=== PATIENT | female | born 1945 | race Caucasian/White ===

== ENCOUNTER 2019-08-15 05:38 | Inpatient (IN) ==
--- NOTE | 2019-08-15 06:57 | Diag Imaging Result Doc PS360 ---
CHEST-2 VIEWS - 08/15/2019 INDICATION: cp COMPARISON: 05/08/2019 FINDINGS: There is COPD. The lungs are clear. Heart size is normal. No pneumothorax or pleural effusion. IMPRESSION: No acute disease. Electronically signed by Duke Holcomb 08/15/2019 6:54 AM
--- NOTE | 2019-08-15 07:09 | PROVIDER DOCUMENTATION ---
HPI-Chest Pain - General Chief Complaint: Chest Pain Stated Complaint: CP Time Seen by Provider: 08/15/19 07:02 Source: patient Allergies/Adverse Reactions: Patient Allergies Allergy/AdvReac Type Severity Reaction Status Date / Time hydrocodone polistirex * Allergy NAUSEA/VOMI Verified 08/15/19 06:18 [From Tussionex] TING levofloxacin [From Levaquin] Allergy NAUSEA/VOMI Verified 08/15/19 06:18 TING Penicillins Allergy NAUSEA/VOMI Verified 08/15/19 06:18 TING pseudoephedrine HCl * Allergy NAUSEA/VOMI Verified 08/15/19 06:18 [From Lodrane D] TING pseudoephedrine tannate * Allergy NAUSEA/VOMI Verified 08/15/19 06:18 [From Lodrane D] TING Sulfa (Sulfonamide Allergy NAUSEA/VOMI Verified 12/17/15 21:20 Antibiotics) TING Home Medications: Home Medication List Medication Instructions Recorded Confirmed Last Taken Type Clonazepam [Klonopin] 0.5 mg PO HS PRN 12/17/15 08/15/19 12/15/15 21:00 History Estradiol Vaginal Cream [Estrace 1 applicator VAG HS 12/17/15 08/15/19 12/16/15 21:00 History Vaginal Cream] Fluticasone 50 Mcg Nasal Dalton 1 spray BAYRON DAILY 12/17/15 08/15/19 12/17/15 09:00 History [Flonase] Multivitamin [Gummi Bear 2 each PO DAILY 12/17/15 08/15/19 12/17/15 09:00 History Multivitamin] Albuterol Sulfate [Ventolin Hfa] 8 gm INHALATION DAILY PRN 06/09/19 08/15/19 Un known History Fexofenadine HCl [Martha Allergy] 180 mg PO DAILY 06/09/19 08/15/19 Unknown History Fluticasone/Salmeterol [Advair 1 inh INHALATION BID 06/09/19 08/15/19 Unknown History 250-50 Diskus] Ipratropium/Albuterol Sulfate 3 ml INHALATION BID 06/09/19 08/15/19 Unknown History [Iprat-Albut 0.5-3(2.5) mg/3 ml] Montelukast Sodium [Singulair] 10 mg PO DAILY 08/15/19 08/15/19 Unknown History - History of Present Illness-CP Nature of Presenting Problem: Patient is a 73 year old white female with history of COPD with 39 pack year history, currently in outpatient pulmonary rehab, who presents with intermittent burning achy left side chest pain for past 5 days after visiting [place]. Chest pain returned last night. Currently chest pain free. Denies history of CAD. Also reports productive green cough. Location: reports: other (left chest) Onset/Duration: 5 days ago Timing: gone now, intermittent Review of Systems - Adult - REVIEW OF SYSTEMS - ADULT Constitutional: denies: chills, fever Eyes: reports: no symptoms reported Ears, Nose, Mouth & Throat: reports: no symptoms reported Cardiovascular: reports: see HPI, chest pain Respiratory: reports: chronic cough Gastrointestinal: reports: no symptoms reported Genitourinary: denies: dysuria Musculoskeletal: reports: no symptoms reported Integumentary: reports: no symptoms reported Neurological: reports: no symptoms reported Psychiatric: reports: no symptoms reported Endocrine: reports: no symptoms reported Hematologic/Lymphatic: reports: no symptoms reported Allergic/Immunologic: reports: no symptoms reported All Other Systems: Reviewed and Negative Past History - Adult - PAST MEDICAL HISTORY-ADULT Review of Records: reports: Old Records Reviewed, Nursing Assessment Review, Medications Reviewed, Social history reviewed & non-contributory. Major Childhood Illnesses: reports: denies history Cardiovascular: reports: denies history Respiratory: reports: COPD Gastrointestinal: reports: other (IBS, ULCERS) Obstetrical/Gynecological: reports: denies history Genitourinary: reports: denies history Musculoskeletal: reports: denies history Neurological: reports: denies history Endocrine/Immune: reports: denies history Other Conditions: reports: denies history - PRIOR SURGERIES/PROCEDURES Surgical/Procedure History: reports: reviewed, not pertinent, BTL, tonsillectomy - IMMUNIZATION STATUS Childhood Immunizations: See Nurse Assessment Flu Vaccine: See Nurse Assessment - FAMILY HISTORY Family History: reviewed, not pertinent - SOCIAL HISTORY Smoking: quit greater than 1 year Substance Use: denies Alcohol Use Frequency: occasionally Living Situation: family Physical Exam-General - CONSTITUTIONAL General Appearance: alert, no apparent distress, other (NONDIAPHORETIC) - EYES Eyes: other (CLEAR) - NECK Neck: supple - RESPIRATORY Respiratory: lungs clear, decreased breath sounds - CARDIOVASCULAR Cardiovascular: regular rate, rhythm - GASTROINTESTINAL (ABDOMEN) Abdominal Exam: non tender, soft - LYMPHATIC Lymphatic: no adenopathy - MUSCULOSKELETAL Back Exam: normal inspection, no CVA tenderness Extremity: normal range of motion, non-tender Peripheral Pulses: radial (R): 2+, radial (L): 2+ - SKIN Integumentary: normal color, normal turgor - NEUROLOGIC Neurologic: grossly normal - PSYCHIATRIC Psych/Mental Status: oriented x 3, anxious - HEART Score HEART Score: History: Moderately Suspicious HEART Score: ECG: Non-Specific Repolarization Disturbance/LBBB/PM HEART Score: Age: > or = 65 Years HEART Score: Risk Factors for Atherosclerotic Disease: 1 or 2 Risk Factors HEART Score: Troponin: < or = Normal Limit Total HEART Score:: 5 Progress - PLAN OF CARE/RESULTS Progress/Plan/Lab Results: Vital Signs - 8 hr 08/15/19 10:15 08/15/19 10:17 Pulse Rate 96 H 92 H Respiratory Rate 21 15 Blood Pressure 124/93 O2 Sat by Pulse Oximetry 95 93 L Laboratory Results - last 24 hr 08/15/19 08/15/19 08/15/19 06:30 06:30 06:30 WBC 6.36 RBC 4.59 Hgb 14.1 Hct 43.6 MCV 95.0 MCH 30.7 MCHC 32.3 L RDW Std Deviation 13.3 Plt Count 142 MPV 10.8 H Immature Gran % (Auto) 0.3 Neut % (Auto) 73.8 Lymph % (Auto) 17.5 L [place] % (Auto) 5.3 Eos % (Auto) 2.8 Baso % (Auto) 0.3 Immature Gran # (Auto) 0.02 Neut # (Auto) 4.69 Lymph # (Auto) 1.11 L [place] # (Auto) 0.34 Eos # (Auto) 0.18 Baso # (Auto) 0.02 Segmented Neutrophils 84 H Band Neutrophils 2 H Lymphocytes 8 L Monocytes 6 Large Platelets OCCASIONAL D-Dimer, Quantitative Sodium 143 Potassium 4.4 Chloride 101 Carbon Dioxide 27 Anion Gap 15 BUN 11 Creatinine 0.6 Estimated GFR/1.73 m2 > 60 BUN/Creatinine Ratio 18 Glucose 113 H Calculated Osmolality 285 Calcium 10.2 Total Bilirubin 0.37 AST 23 ALT 15 Alkaline Phosphatase 81 Creatine Kinase 146 Troponin T < 0.010 Ysd-G-Psrlhorlsym Pept Total Protein 7.0 Albumin 4.4 Globulin 2.6 Albumin/Globulin Ratio 1.7 Triglycerides Cholesterol LDL Cholesterol VLDL Cholesterol, Calc HDL Cholesterol Coronary Risk Interp 08/15/19 08/15/19 08/15/19 06:30 08:34 09:36 WBC RBC Hgb Hct MCV MCH MCHC RDW Std Deviation Plt Count MPV Immature Gran % (Auto) Neut % (Auto) Lymph % (Auto) [place] % (Auto) Eos % (Auto) Baso % (Auto) Immature Gran # (Auto) Neut # (Auto) Lymph # (Auto) [place] # (Auto) Eos # (Auto) Baso # (Auto) Segmented Neutrophils Band Neutrophils Lymphocytes Monocytes Large Platelets D-Dimer, Quantitative 0.32 Sodium Potassium Chloride Carbon Dioxide Anion Gap BUN Creatinine Estimated GFR/1.73 m2 BUN/Creatinine Ratio Glucose Calculated Osmolality Calcium Total Bilirubin AST ALT Alkaline Phosphatase Creatine Kinase Troponin T < 0.010 Ayz-R-Azhgonmeiap Pept Total Protein Albumin Globulin Albumin/Globulin Ratio Triglycerides 59 Cholesterol 202 H LDL Cholesterol 80 VLDL Cholesterol, Calc 12 HDL Cholesterol 110 H Coronary Risk Interp 2.00 08/15/19 09:36 WBC RBC Hgb Hct MCV MCH MCHC RDW Std Deviation Plt Count MPV Immature Gran % (Auto) Neut % (Auto) Lymph % (Auto) [place] % (Auto) Eos % (Auto) Baso % (Auto) Immature Gran # (Auto) Neut # (Auto) Lymph # (Auto) [place] # (Auto) Eos # (Auto) Baso # (Auto) Segmented Neutrophils Band Neutrophils Lymphocytes Monocytes Large Platelets D-Dimer, Quantitative Sodium Potassium Chloride Carbon Dioxide Anion Gap BUN Creatinine Estimated GFR/1.73 m2 BUN/Creatinine Ratio Glucose Calculated Osmolality Calcium Total Bilirubin AST ALT Alkaline Phosphatase Creatine Kinase Troponin T Grb-[id number]-Rlydycmqeyq Pept 78 Total Protein Albumin Globulin Albumin/Globulin Ratio Triglycerides Cholesterol LDL Cholesterol VLDL Cholesterol, Calc HDL Cholesterol Coronary Risk Interp Orders Category Date Time Status Admit - [facility] Routine AdmDCTranf 08/15/19 14:12 Active Cardiac Monitoring DIRECTED Care 08/15/19 05:58 Active DVT/PE Risk Assess/Protocol [QM] ORDERED Care 08/15/19 14:12 Active Notify MD if DIRECTED Care 08/15/19 14:12 Active Nursing- MD Consult Request ROUTINE Care 08/15/19 14:12 Active Saline Loc DIRECTED Care 08/15/19 14:12 Active Saline Loc NOW Care 08/15/19 05:57 Completed Vital Signs Order Q 4-HR ASSESS Care 08/15/19 14:12 Active Z-Document. for Tele Applied ORDERED Care 08/15/19 14:12 Active Physician/Provider Consults Routine Cons 08/15/19 14:12 Ordered Heart Healthy Diet Diet 08/15/19 14:13 Active CHEST-2 VIEWS [RAD] Stat Exams 08/15/19 06:14 Completed CBC WITH ELECTRONIC DIFF [HEME] Stat Lab 08/15/19 06:30 Completed CK PROFILE [SP CHEM] Stat Lab 08/15/19 06:30 Completed CMP [COMPREHENSIVE METABOLIC PANEL] [CHEM] Stat Lab 08/15/19 06:30 Completed D-DIMER [COAG] Routine Lab 08/15/19 08:34 Completed LIPID PROFILE W/CALC LDL [LIPIDS] Routine Lab 08/15/19 06:30 Completed PRO B-NATRIURETIC PEPTIDE Stat Lab 08/15/19 09:36 Completed TROPONIN T Routine Lab 08/15/19 14:37 Completed TROPONIN T Stat Lab 08/15/19 06:30 Completed TROPONIN T Stat Lab 08/15/19 09:36 Completed Acetaminophen [Tylenol] Med 08/15/19 14:12 Active 650 mg PO Q6H PRN PRN Aspirin Med 08/16/19 09:00 Active 325 mg PO DAILY Clonazepam [Klonopin] Med 08/15/19 14:12 Active 0.5 mg PO HS PRN PRN Clonazepam [Klonopin] Med 08/15/19 10:13 Discontinued 0.5 mg PO NOW ONE Enoxaparin [Lovenox] Med 08/15/19 14:12 Active 40 mg SUBQ Q24H Fluticasone 50 Mcg Nasal Dalton [Flonase] Med 08/16/19 09:00 Active 1 spray BAYRON DAILY Fluticasone/Salmet 250/50 INH [Advair 250/50 Diskus] Med 08/15/19 19:30 Active 1 puff INH RTBID Ipratropium [place] Neb [Atrovent Neb] Med 08/15/19 10:14 Discontinued 0.5 mg INH NOW ONE Montelukast [Singulair] Med 08/16/19 09:00 Active 10 mg PO DAILY Nitroglycerin Sl [Nitroglycerin] Med 08/15/19 09:23 Discontinued 0.4 mg SL NOW ONE Nitroglycerin Sl [Nitroglycerin] Med 08/15/19 14:12 Active 0.4 mg SL Q5M PRN PRN Omeprazole [Prilosec] Med 08/16/19 07:00 Active 20 mg PO DAILY@0700 Ondansetron [Zofran] Med 08/15/19 14:12 Active 4 mg IV Q4H PRN PRN Aerosol Treatments Routine Oth 08/15/19 10:14 Completed Aerosol Treatments Stat Oth 08/15/19 10:14 Completed Oxygen Device Routine Oth 08/15/19 14:12 Completed Telemetry [OM.EQ] Routine Oth 08/15/19 14:12 Active EKG [EKG] Routine Ther 08/16/19 06:00 Ordered EKG [EKG] Stat Ther 08/15/19 05:40 Draft EKG [EKG] Stat Ther 08/15/19 09:20 Draft Transfer/Admit Order [TRANSFER] Routine Transfer 08/15/19 10:14 Completed Result Diagrams: 08/15/19 06:30 08/15/19 06:30 - EKG 1 Time of EKG reading by physician:: 05:47 EKG Read and Signed by:: Caleb Rodas Rate: 91 Rhythm: NSR [place]: normal ST Wave: non-specific ST changes Comments: NO STEMI - XRAY 1 XRAY Study: Chest XRAY Interpretation: NAD - CONSULTS/PCP/HOSPITALIST Notification #1 *Consult/PCP/Hospitalist*: Dr Sauceda Time Discussed: 09:27 Consult Disposition: Will see in ED, Admit - CHANGE OF SHIFT REPORT (ED Provider) 1 Report Given and Care Transferred to:: DR. CONTRERAS Time of Transfer: 07:00 Items Pending: Labs Departure - Departure Date of Disposition Decision: 08/15/19 Time of Disposition Decision: 09:24 DIAGNOSIS: Chest pain, HTN (hypertension) Disposition: ADMITTED INPATIENT 09 Certified Medical Emergency: Emergent Condition: Fair - Critical Care Note This patient required my direct & personal management of CC.: No Attestation - Physician/ TRUNG Attestation Patient care was provided by Advanced Practice Provider:: No The physician spent face to face time with patient:: Yes Advanced Practice Provider documentation review:: Supervising physician onsite and consulted in the evaluation and care of this patient. The physician did have a face to face encounter with the patient.
[2019-08-15 07:13] LABS: BASO# 0.02 X1000 (0.0-0.2); BASO% 0.3 % (0.0-0.8); EOS# 0.18 X1000 (0.0-0.7); EOS% 2.8 % (0.0-10.0); HEMATOCRIT 43.6 % (37.0-47.0); HEMOGLOBIN 14.1 g/dL (12.0-16.0); IMM GRAN# 0.02 X1000 (0.0-0.04); IMM GRAN% 0.3 % (0.0-0.5); LYMPH# 1.11 X1000 (1.2-3.4); LYMPH% 17.5 % (20.5-51.1); MCH 30.7 PG (27-31); MCHC 32.3 g/dL (33-37); MONO# 0.34 X1000 (0.11-0.59); MONO% 5.3 % (1.7-9.3); MPV 10.8 FL (7.4-10.4); NEUT# 4.69 X1000 (1.4-6.5); NEUT% 73.8 % (42.2-75.2); RBC 4.59 XMIL (4.2-5.4); RDW 13.3 % (11.5-14.5); WBC 6.36 X1000 (4.8-10.8)
[2019-08-15 07:25] LABS: AGAP 15; ALB/GLOB RATIO 1.7; ALBUMIN 4.4 g/dL (3.5-5.0); ALKALINE PHOSPHATASE 81 U/L (32-104); BUN 11 mg/dL (8-22); CALCIUM 10.2 mg/dL (8.8-10.2); CHLORIDE 101 mmol/L (98-107); CK PROFILE 146 U/L (24-173); COSMO 285; CREATININE 0.6 mg/dL (0.5-0.9); ESTIMATED GFR > 60; GLUCOSE 113 mg/dL (70-104); GOT 23 U/L (10-30); GPT 15 U/L (10-36); POTASSIUM 4.4 mmol/L (3.5-5.1); SODIUM 143 mmol/L (136-145); TCO2 27 mmol/L (25-35); TOTAL BILIRUBIN 0.37 mg/dL (0.20-1.00)
--- NOTE | 2019-08-15 07:29 | EKG Report ---
Test Performed on : 08/15/2019 05:46:04 AM Test Reason : CP Blood Pressure : / mmHG Vent. Rate : 091 BPM Atrial Rate : 091 BPM P-R Int : 144 ms QRS Dur : 074 ms QT Int : 364 ms P-R-T Axes : 058 -11 053 degrees QTc Int : 447 ms Sinus rhythm. with marked sinus arrhythmia. Otherwise normal ECG When compared with ECG of 22-MAY-2019 07:26, ST now depressed in Inferior leads Unconfirmed Result
[2019-08-15 07:57] LABS: BANDS 2 % (0-1); LYMPHS 8 % (21-51); MONO 6 % (1-9); SEGS 84 % (42-75)
[2019-08-15 08:11] LABS: PLT 142 X1000 (130-400)
[2019-08-15 08:13] LABS: LARGE PLATELETS OCCASIONAL
[2019-08-15] MEDS ORDERED: NITROGLYCERIN SL ONE (09:23)
[2019-08-15] MEDS ORDERED: KLONOPIN PO ONE (10:13)
[2019-08-15] MEDS ORDERED: ATROVENT NEB INH ONE (10:14)
--- NOTE | 2019-08-15 10:17 | ED EKG INTERP ---
This chart was entered by Judi Bennett Scribe, acting as scribe for Franck Espinoza MD. EKG Interpretation - EKG Time of EKG reading by physician:: 05:46 EKG Read and Signed by:: Franck Espinoza EKG Interpretation (*Must complete 3 of following elements*): Normal Rate: 91 Rhythm: sinus rhythm w/ marked sinus arrhythmia [place]: normal QRS: normal [place] Interval: normal ST Wave: normal - EKG # 2 Time of EKG reading by physician:: 10:01 EKG Read and Signed by:: Franck Espinoza EKG Interpretation (*Must complete 3 of following elements*): Normal Rate: 89 Rhythm: sinus rhythm with marked sinus arrhytmia [place]: normal QRS: normal NH Interval: normal ST Wave: normal Prior EKG Comparison: unchanged from prior Attestation - Physician/ TRUNG Attestation Patient care was provided by Advanced Practice Provider:: No The physician spent face to face time with patient:: Yes Advanced Practice Provider documentation review:: Supervising physician onsite and consulted in the evaluation and care of this patient. The physician did have a face to face encounter with the patient. This chart was documented by the indicated scribe, (Judi Bennett Scribe) and accurately reflects the services I performed and decisions made by me, Franck Espinoza MD, as attested by the provider's signature.
--- NOTE | 2019-08-15 10:18 | EKG Report ---
Test Performed on : 08/15/2019 10:01:06 AM Test Reason : CHEST PAIN Blood Pressure : / mmHG Vent. Rate : 089 BPM Atrial Rate : 089 BPM P-R Int : 136 ms QRS Dur : 072 ms QT Int : 376 ms P-R-T Axes : 072 003 057 degrees QTc Int : 457 ms Sinus rhythm. with marked sinus arrhythmia. Otherwise normal ECG When compared with ECG of 15-AUG-2019 05:46, (Unconfirmed) ST no longer depressed in Inferior leads Unconfirmed Result
--- NOTE | 2019-08-15 11:12 | HISTORY AND PHYSICAL ---
CHIEF COMPLAINT: Substernal chest burning. PRESENT ILLNESS: Mrs. Garcia is a 73-year-old woman with no previous cardiac history, who presented to the emergency room after a restless night due to burning substernal chest pain radiating into her left shoulder. The pain is described as aching and burning and was intermittent for the past 5 days but became more persistent last night. Initially on presentation, she was pain free, developed some substernal chest pain which was relieved by 1 nitroglycerin. She denies any previous history of coronary disease. She has a longstanding chronic anxiety issue and approximately 25 years ago was scheduled for G[facility] and the marketing finance manager attempted to begin the test and she had a panic attack and the test was aborted. She several months ago was referred to Pulmonary rehab and has only after 10 or 12 sessions been able to walk very briefly on the treadmill for up to 3 minutes. She also reports a slightly productive cough with green mucus. She denies shortness of breath but has a history of COPD and is followed by Dr. Murguia and uses multiple inhalers daily. She quit smoking 4-5 years ago but has a 39 pack year history. She has no previous history of hypertension or elevated cholesterol. Her family history is positive for both parents with coronary disease in their late 70s or early 80s. PAST MEDICAL HISTORY: Remarkable for anxiety and COPD. HOME MEDICATIONS: Singulair 10 mg daily, Advair 250 1 inhalation twice a day, Spiriva inhaler once daily, Ventolin inhaler p.r.n. for shortness of breath, Bentyl 10 mg as needed for abdominal cramping, Klonopin 0.5 mg b.i.d., Martha 24 Hour Allergy 1 daily, Estrace vaginal cream as needed, multiple vitamins 1 daily, Flonase Sensimist nasal spray daily, DuoNeb nebulizer twice a day. FAMILY HISTORY: As above. SOCIAL HISTORY: She is and lives with her . She smoked but quit at least 5 years ago. Only rare social alcohol intake. REVIEW OF SYSTEMS: General: No fever, chills, weight loss. HEENT exam: Vision and hearing are adequate without recent changes. Respiratory: Mild chronic cough with occasional sputum production, slightly worse recently. Cardiovascular: See present illness, no palpitations, orthopnea, PND, or pedal edema. GI: Appetite is good. No nausea, vomiting, diarrhea, constipation, or liver disease. : No dysuria, increased frequency of urination, or hematuria. Musculoskeletal: No significant arthritic complaints. Skin: No rash or itching. Neurologic: Normal memory, positive for intermittent chronic anxiety. Psychiatric: No history of depression. Endocrine: No history of thyroid problems or diabetes. SURGICAL HISTORY: Status post bilateral tubal ligation and remote history of tonsillectomy. PHYSICAL EXAMINATION: VITAL SIGNS: Temperature is 98.8, pulse is 102, respiratory rate 16, blood pressure 157/102, O2 saturation 93% on room air. GENERAL APPEARANCE: Alert, pleasant, talkative, white female, who appears somewhat younger than her stated age in no distress. HEENT EXAM: Pupils equal, round, and reactive to light. Extraocular movements are intact. No icterus. Oropharynx is benign. LUNGS: Clear to auscultation and percussion anteriorly and posteriorly. CARDIOVASCULAR: There is regular rhythm, borderline tachycardia, no S3, S4 or murmurs were heard. ABDOMEN: Soft, flat, nontender, with active bowel sounds. EXTREMITIES: No cyanosis, clubbing, or edema. Muscle mass is symmetric and unremarkable. SKIN: No rash. Adequate turgor. Electrocardiogram initial one was read as inferior ST depression but I do not notice anything outstanding. Repeat EKG, rate is normal and appears the same to me. CBC, chemistry profile, and D-dimer are all normal. ASSESSMENT: 1. Chest pain with moderate probability for angina. She does not have any associated diaphoresis, shortness of breath, or nausea. 2. Chronic obstructive pulmonary disease, stable with greater than 5 year nonsmoking history. 3. History of chronic anxiety. TREATMENT PLAN: Will admit for Cardiology consultation and perhaps a nuclear treadmill test without exercise would be best for her. We will hold the beta agonist in her respiratory treatments as her most recent pulmonary function test showed no improvement with bronchodilators. cc: Gregg Sauceda MD [facility]
[2019-08-15] MEDS ORDERED: ZOFRAN IV PRN (14:12)
[2019-08-15] MEDS ORDERED: LOVENOX SUBQ SCH (14:12)
[2019-08-15] MEDS ORDERED: TYLENOL PO PRN (14:12)
[2019-08-15] MEDS ORDERED: NITROGLYCERIN SL PRN (14:12)
[2019-08-15] MEDS ORDERED: KLONOPIN PO PRN (14:12)
[2019-08-15 14:38] LABS: CHOLESTEROL 202 mg/dL (0-200); HDL 110 mg/dL (45-65); LDL 80 mg/dL; TRIGLYCERIDES 59 mg/dL (35-135); VLDL 12 mg/dL
[2019-08-15] MEDS: ATROVENT NEB INH SCH ×2 (15:00→23:13)
[2019-08-15] MEDS: ADVAIR 250/50 DISKUS INH SCH (23:14)
--- NOTE | 2019-08-16 00:33 | CONSULTATION ---
DATE OF CONSULTATION: 08/15/2019 IMPRESSION: 1. Episodic chest discomfort with mixed features for possible myocardial ischemia/underlying atherosclerotic coronary disease. 2. Anxiety disorder. 3. Chronic obstructive pulmonary disease. 4. Gastroesophageal reflux disease. RECOMMENDATIONS: 1. Telemetry observation. 2. Follow up cardiac enzymes. 3. If cardiac enzymes negative, agree with plan to pursue stress myocardial perfusion imaging and echocardiography to noninvasively assess for atherosclerotic coronary disease/structural heart disease. HISTORY: This 73-year-old white female with past history of anxiety disorder and COPD, was admitted for further investigation of chest pain. She relates that for the past week she has been having burning discomfort across the chest, typically in the weir fisherman hours such as at 2 a.m. She has been eating a more or less holiday diet for the past week. She tried to cut back but symptoms persisted in occurring. She has some chronic exertional shortness of breath related to her COPD. Her burning discomfort might last for 30 minutes to an hour, but has been frequently recurring. Her chest discomfort does not seem to be exertional. She is not aware of any previous cardiac problems. She quit smoking approximately 5 years ago and previously smoked about 1 pack cigarettes per day for about 40 years. PAST MEDICAL HISTORY: 1. Anxiety. 2. Chronic obstructive pulmonary disease. PAST SURGICAL HISTORY: 1. Includes previous bilateral tubal ligation. 2. Remote history of tonsillectomy. 3. Gastroesophageal reflux disease. ALLERGIES: She is allergic or intolerant of hydrocodone, levofloxacin and penicillins, among others. SOCIAL HISTORY: She is and lives with her . She quit smoking 5 years ago and previously smoked 1 pack of cigarettes per day. She drinks occasional alcoholic beverage. FAMILY HISTORY: Negative for premature coronary disease. REVIEW OF SYSTEMS: Pulmonary: With chronic exertional dyspnea, otherwise noncontributory. Gastrointestinal: Noncontributory beyond history of present illness. Constitutional: Noncontributory beyond history of present illness. Review of systems negative/noncontributory beyond history of present illness with 14 total systems reviewed. PHYSICAL EXAMINATION: General: This is a thin, older white female in no distress, on supplemental oxygen per nasal cannula. Vital signs: Blood pressure 110/74, heart rate 89, oxygen saturation 96% on nasal cannula oxygen at 2 L/minute. HEENT: Extraocular movements intact. Mucous membranes are moist. Neck: Supple without jugular venous distention. There are no carotid bruits. Chest: Clear to auscultation bilaterally. Cardiac: Reveals a regular rate and rhythm without appreciable murmur or gallop. Abdomen: Soft. Bowel sounds are normal. Extremities: Without edema. Neurologic: Reveals her to be alert and fully oriented. Speech is fluent. She moves all 4 extremities equally well. Skin: Warm and dry. Psychiatric: Reveals her mood to be appropriate. PERTINENT DATA: Twelve lead EKG is reviewed and demonstrates sinus rhythm with sinus arrhythmia. LABORATORY DATA: Includes a white blood cell count 6.36, hematocrit 43.6, hemoglobin 14.1, platelet count 142,000. D-dimer 0.32. Sodium 143, potassium 4.4, chloride 101, carbon dioxide 27, BUN 11, creatinine 0.6. Glucose 113. Troponin T less than 0.01. Followup troponin T less than 0.01 and further followup troponin T less than 0.01. Triglycerides 59, total cholesterol 202, LDL cholesterol 80, HDL cholesterol 110, VLDL cholesterol 12. cc: MD Gregg Mauro MD
[2019-08-16 04:10] LABS: URINE SOURCE CLEAN CATCH
[2019-08-16 04:15] LABS: BILIRUBIN URINE NEGATIVE (NEGATIVE); BLOOD URINE NEGATIVE (NEGATIVE); COLOR YELLOW; GLUCOSE URINE NEGATIVE (NEGATIVE); KETONE URINE TRACE mg/dL (NEGATIVE); LEUKOCYTES URINE LARGE (NEGATIVE); NITRITE URINE POSITIVE (NEGATIVE); PH URINE 5.5; PROTEIN URINE NEGATIVE (NEGATIVE); SP GRAVITY URINE 1.015; TURBIDITY URINE HAZY (CLEAR); UROBILINOGEN URINE NORMAL (NORMAL)
[2019-08-16 04:17] LABS: UR EPITHELIAL CELLS <10 /HPF (<10); URINE BACTERIA 3+ /HPF; URINE RBC <10 /HPF (<10); URINE WBC TNTC /HPF (<10)
[2019-08-16] MEDS ORDERED: PRILOSEC PO SCH (07:00)
[2019-08-16] MEDS: ATROVENT NEB INH SCH ×3 (07:54→15:34)
[2019-08-16] MEDS: ADVAIR 250/50 DISKUS INH SCH (07:55)
--- NOTE | 2019-08-16 08:06 | EKG Report ---
Test Performed on : 08/16/2019 07:35:54 AM Test Reason : chest pain Blood Pressure : / mmHG Vent. Rate : 090 BPM Atrial Rate : 090 BPM P-R Int : 144 ms QRS Dur : 074 ms QT Int : 380 ms P-R-T Axes : 092 065 084 degrees QTc Int : 464 ms Normal sinus rhythm. Normal ECG When compared with ECG of 15-AUG-2019 10:01, (Unconfirmed) Questionable change in QRS axis Confirmed by Deniz ESPINOZA, Anival ([id number]) on 08/16/2019 8:55:44 AM
[2019-08-16] MEDS ORDERED: ASPIRIN PO SCH (09:00)
[2019-08-16] MEDS ORDERED: FLONASE NAS SCH (09:00)
[2019-08-16] MEDS ORDERED: KLONOPIN PO SCH (09:00)
[2019-08-16] MEDS ORDERED: SINGULAIR PO SCH (09:00)
[2019-08-16] MEDS ORDERED: LEXISCAN ONE (10:03)
[2019-08-16] MEDS ORDERED: AMINOPHYLLINE ONE (11:04)
--- NOTE | 2019-08-16 15:11 | Diag Imaging Result Document ---
PROCEDURE NAME: MYOCARDIAL PERF SCAN, STR/REST - 08/16/2019 STUDY PERFORMED: Lexiscan sestamibi interpretation. SUMMARY: The patient was administered 10.7 mCi of technetium-99m sestamibi, after which resting cardiac images were obtained. The patient was subsequently administered Lexiscan 0.4 mg intravenously, after which the heart rate went from 96 beats per minute to 122 beats per minute and the blood pressure went from 110/70 to 103/63. With Lexiscan, the patient denied chest discomfort. Following the administration of Lexiscan, the patient was administered 32.2 mCi of technetium-99m sestamibi, after which gated stress cardiac images were obtained. Baseline ECG demonstrates sinus rhythm. With Lexiscan, there were no diagnostic ST-segment changes. SPECT images were reconstructed in the short, horizontal long, and vertical long axes. Review of these images demonstrated homogeneous uptake of radiopharmaceutical on both stress and resting images. Gated images demonstrate a calculated left ventricular ejection fraction of 81% with symmetrical wall motion/thickening. CONCLUSIONS: 1. Adequate response to Lexiscan. 2. Clinically negative for chest pain. 3. Electrocardiographically negative for Lexiscan-induced myocardial ischemia. 4. Normal Lexiscan sestamibi images. cc: MD Gregg Mauro MD
[2019-08-16 15:28] VITALS: BP 104/83
--- NOTE | 2019-08-17 07:13 | PROGRESS NOTE ---
DATE: 08/16/2019 SUBJECTIVE: Patient continues to have further chest discomfort or shortness of breath on room air. OBJECTIVE: Vital Signs: Blood pressure 104/83, heart rate 101 and regular, with ECG monitor showing sinus rhythm. Oxygen saturation 94%. Neck: There is no significant jugular venous distention. Chest: Clear to auscultation bilaterally. Cardiac: Reveals a regular rate and rhythm without appreciable murmur or gallop. There is no evidence of peripheral edema. LABORATORY DATA: Includes initial troponin less than 0.01. Followup troponins of less than 0.01 and less than 0.01. Lexiscan sestamibi study reveals no evidence of inducible myocardial ischemia and indicates normal left ventricular ejection fraction. IMPRESSION: 1. Episodic chest discomfort with mixed features for myocardial ischemia. No evidence of myocardial insult. Lexiscan myocardial perfusion study negative for evidence of inducible myocardial ischemia. Suspect chest symptoms more likely noncardiac and possibly related to gastroesophageal reflux disease. 2. Anxiety disorder. 3. Chronic obstructive pulmonary disease. RECOMMENDATIONS: 1. The patient appears clinically stable to be discharged to home from a cardiology standpoint. 2. We will consider further evaluation and management of gastroesophageal reflux disease if symptoms persist. cc: MD Gregg Mauro MD
== END 2019-08-16 18:00 | disposition home or self-care (01) | DRG 392 ==
LOC: ED 05:38 → EDIPHOLD 10:29 → 4N 16:23
PROVIDERS: ADMIT Internal Medicine; ATTEND Internal Medicine

== ENCOUNTER 2019-10-17 19:39 | Inpatient (IN) ==
--- NOTE | 2019-10-17 20:03 | EKG Report ---
Test Performed on : 10/17/2019 7:47:34 PM Test Reason : SOB/Chest Pain. Blood Pressure : / mmHG Vent. Rate : 127 BPM Atrial Rate : 127 BPM P-R Int : 112 ms QRS Dur : 074 ms QT Int : 406 ms P-R-T Axes : 000 -09 084 degrees QTc Int : 590 ms Sinus tachycardia. Possible Inferior infarct , age undetermined Abnormal ECG When compared with ECG of 16-AUG-2019 07:35, Borderline criteria for Inferior infarct are now present T wave inversion now evident in Anterior leads Unconfirmed Result
--- NOTE | 2019-10-17 20:37 | Diag Imaging Result Doc PS360 ---
EXAM: CHEST-1 VIEW HISTORY: cp, sob TECHNIQUE: Single view COMPARISON: 08/15/2019 FINDINGS: The lungs are hyperexpanded. The heart is not enlarged. The vessels are small. There are increased interstitial markings in the lower left lung. No effusion identified. IMPRESSION: Left lingular pneumonia. Emphysema. Electronically signed by Moisés López 10/17/2019 8:34 PM
[2019-10-17 20:55] LABS: BASO# 0.01 X1000 (0.0-0.2); BASO% 0.1 % (0.0-0.8); EOS# 0.01 X1000 (0.0-0.7); EOS% 0.1 % (0.0-10.0); HEMATOCRIT 47.5 % (37.0-47.0); HEMOGLOBIN 15.3 g/dL (12.0-16.0); IMM GRAN# 0.08 X1000 (0.0-0.04); IMM GRAN% 0.5 % (0.0-0.5); LYMPH# 0.67 X1000 (1.2-3.4); LYMPH% 4.4 % (20.5-51.1); MCH 30.5 PG (27-31); MCHC 32.2 g/dL (33-37); MCV 94.6 FL (81-99); MONO# 0.86 X1000 (0.11-0.59); MONO% 5.6 % (1.7-9.3); MPV 9.7 FL (7.4-10.4); NEUT# 13.63 X1000 (1.4-6.5); NEUT% 89.3 % (42.2-75.2); PLT 278 X1000 (130-400); RBC 5.02 XMIL (4.2-5.4); RDW 13.7 % (11.5-14.5); WBC 15.26 X1000 (4.8-10.8)
[2019-10-17 21:09] LABS: AGAP 15; ALB/GLOB RATIO 1.4; ALBUMIN 4.2 g/dL (3.5-5.0); ALKALINE PHOSPHATASE 88 U/L (32-104); BUN 10 mg/dL (8-22); CALCIUM 9.4 mg/dL (8.8-10.2); CHLORIDE 100 mmol/L (98-107); COSMO 278; CREATININE 0.6 mg/dL (0.5-0.9); ESTIMATED GFR > 60; GLUCOSE 117 mg/dL (70-104); GOT 25 U/L (10-30); GPT 17 U/L (10-36); POTASSIUM 4.3 mmol/L (3.5-5.1); SODIUM 139 mmol/L (136-145); TCO2 24 mmol/L (25-35); TOTAL BILIRUBIN 0.49 mg/dL (0.20-1.00); TOTAL PROTEIN 7.1 g/dL (6.3-8.3)
[2019-10-17] MEDS ORDERED: XOPENEX NEB INH ONE (21:17)
[2019-10-17] MEDS ORDERED: TYLENOL PO ONE (21:20)
[2019-10-17] MEDS ORDERED: NS NEB INH SCH (21:30)
[2019-10-17] MEDS ORDERED: NS NEB INH ONE (21:30)
[2019-10-17] MEDS ORDERED: NS 1,000 ML IV ONE (21:40)
[2019-10-17 22:40] LABS: INR 1.01; PROTIME 13.4 Seconds (11.0-16.0); PTT 31.5 Seconds (22.3-41.8)
[2019-10-17 23:52] LABS: ALLEN TEST YES; BE 0.5 mmoll (-3.0-3.0); BLOOD TYPE ARTERIAL; METHB 1.1 % (0.0-1.5); O2(CT) 16.7 mL/dL (15.0-23.0); PCO2(98.6) 37 mmHg (35-45); SAMPLE BLOOD; SAO2 90.4 % (95.0-100.0); THB 13.7 g/dL (11.5-17.4); pH(98.6) 7.43 (7.35-7.45)
[2019-10-17 23:54] LABS: PO2(98.6) 46 mmHg (60-100)
[2019-10-17 23:55] LABS: MODALITY ROOM AIR; O2HB 87.2 % (95.0-99.0)
[2019-10-18] MEDS ORDERED: ZITHROMAX 500 MG/NS 500 MG/250 ML IVPB IV ONE
[2019-10-18] MEDS ORDERED: SOLU-MEDROL IV ONE (00:01)
[2019-10-18 00:07] LABS: URINE SOURCE CLEAN CATCH
--- NOTE | 2019-10-18 00:13 | PROVIDER DOCUMENTATION ---
This chart was entered by Kriss Rodriguez Scribe, acting as scribe for Franck Espinoza MD. HPI-Respiratory General - General Chief Complaint: Shortness of Breath Stated Complaint: brething issues Time Seen by Provider: 10/17/19 20:07 Source: patient Allergies/Adverse Reactions: Patient Allergies Allergy/AdvReac Type Severity Reaction Status Date / Time acetaminophen Allergy Unknown Verified 10/17/19 21:57 [From Lorcet (hydrocodone)] brompheniramine Allergy Unknown Verified 10/17/19 21:57 [From Lodrane D] diphenhydramine Allergy Unknown Verified 10/17/19 21:57 [From Benadryl] hydrocodone Allergy Unknown Verified 10/17/19 21:57 [From Lorcet (hydrocodone)] hydrocodone polistirex * Allergy NAUSEA/VOMI Verified 10/17/19 21:57 [From Tussionex] TING ibuprofen Allergy Unknown Verified 10/17/19 21:57 levofloxacin [From Levaquin] Allergy NAUSEA/VOMI Verified 10/17/19 21:57 TING Penicillins Allergy NAUSEA/VOMI Verified 10/17/19 21:57 TING pseudoephedrine Allergy Unknown Verified 10/17/19 21:57 [From Lodrane D] pseudoephedrine HCl * Allergy NAUSEA/VOMI Verified 10/17/19 21:57 [From Lodrane D] TING pseudoephedrine tannate * Allergy NAUSEA/VOMI Verified 10/17/19 21:57 [From Lodrane D] TING Sulfa (Sulfonamide Allergy NAUSEA/VOMI Verified 10/17/19 21:57 Antibiotics) TING trazodone Allergy Unknown Verified 10/17/19 21:57 Home Medications: Home Medication List Medication Instructions Recorded Confirmed Last Taken Type Estradiol Vaginal Cream [Estrace 1 applicator VAG HS 12/17/15 10/17/19 12/16/15 21:00 History Vaginal Cream] Fluticasone 50 Mcg Nasal [place] 1 spray BAYRON DAILY 12/17/15 10/17/19 12/17/15 09:00 History [Flonase] Multivitamin [Gummi Bear 2 each PO DAILY 12/17/15 10/17/19 12/17/15 09:00 History Multivitamin] Albuterol Sulfate [Ventolin Hfa] 8 gm INHALATION DAILY PRN 06/09/19 10/17/19 Unknown History Fluticasone/Salmeterol [Advair 1 inh INHALATION BID 06/09/19 10/17/19 Unknown History 250-50 Diskus] Montelukast Sodium [Singulair] 10 mg PO DAILY 08/15/19 10/17/19 Unknown History Acetaminophen [Tylenol] 650 mg PO Q6H PRN PRN tab 08/16/19 10/17/19 Unknown Rx Clonazepam [Klonopin] 0.5 mg PO BID tab 08/16/19 10/17/19 Unknown Rx Fexofenadine HCl [Martha Allergy] 180 mg PO DAILY PRN #30 08/16/19 10/17/19 Unknown Rx Ipratropium [place] Neb [Atrovent 0.5 mg INH BID #60 neb 08/16/19 10/17/19 Unknown Rx Neb] Omeprazole [Prilosec] 20 mg PO DAILY@0700 #30 cap 08/16/19 10/17/19 Unknown Rx Dicyclomine [Bentyl] 10 mg PO PRN PRN 10/17/19 10/17/19 Unknown History Propylene Glycol/Peg Oph Soln 1 drp BOTH EYES DAILY 10/17/19 10/17/19 Unknown History [Systane Eye Drops] Tiotropium [place] Inhaler 1 puff INH PRN PRN 10/17/19 10/17/19 Unknown History [Spiriva] - History of Present Illness-Resp Nature of Presenting Problem: pt is a 74 yr old female presenting with increased shortness of breath, coughing and chest wall pain. pt reports pain across chest with coughing, no relief with nebulizer tx at home. pt reports worse after vice chairman used new rolls baker in the home. Quality of Pain: reports: dull Severity in ED: reports: mild Onset/Duration: reports: gradual Timing: reports: still present Context: reports: recent URI Exposure: reports: unknown cause Cough Quality/Degree: reports: moderate, dry cough Episode Frequency: frequent episodes Current Respiratory Medication Therapy: Initiated albuterol (no relief) Modifying Factors: improves with: exertion (worsens), albuterol nebulizer (no improvement) Associated Symptoms: reports: chest pain/soreness, cough, shortness of breath, wheezing. denies: fever/chills, nasal congestion Similar Symptoms Previously?: Yes Recently seen or treated by another doctor?: Yes Review of Systems - Adult - REVIEW OF SYSTEMS - ADULT Constitutional: reports: fever, fatique. denies: chills Eyes: denies: discharge, redness Ears, Nose, Mouth & Throat: denies: ear pain, sinus problem, hoarseness Cardiovascular: denies: chest pain, palpitations, syncope Respiratory: reports: cough, dyspnea on exertion, shortness of breath Gastrointestinal: denies: abdominal pain, diarrhea, nausea, vomiting Genitourinary: reports: no symptoms reported Musculoskeletal: denies: back pain, muscle aches, muscle weakness Integumentary: reports: no symptoms reported Neurological: denies: dizziness/vertigo, headache/migraines, syncope Psychiatric: reports: no symptoms reported Endocrine: reports: no symptoms reported Hematologic/Lymphatic: reports: no symptoms reported Allergic/Immunologic: reports: no symptoms reported All Other Systems: Reviewed and Negative Past History - Adult - PAST MEDICAL HISTORY-ADULT Review of Records: reports: Old Records Reviewed, Nursing Assessment Review, Medications Reviewed, Social history reviewed & non-contributory. Major Childhood Illnesses: reports: denies history Cardiovascular: reports: denies history Respiratory: reports: COPD Gastrointestinal: reports: other (IBS, ULCERS) Obstetrical/Gynecological: reports: denies history Genitourinary: reports: denies history Musculoskeletal: reports: denies history Neurological: reports: denies history Endocrine/Immune: reports: denies history Other Conditions: reports: denies history - PRIOR SURGERIES/PROCEDURES Surgical/Procedure History: reports: reviewed, not pertinent, BTL, tonsillectomy - IMMUNIZATION STATUS Childhood Immunizations: See Nurse Assessment Flu Vaccine: See Nurse Assessment - FAMILY HISTORY Family History: reviewed, not pertinent - SOCIAL HISTORY Smoking: quit greater than 1 year Substance Use: denies Living Situation: family Physical Exam-General - PHYSICAL EXAM-ADULT Initial Vital Signs Reviewed: Yes - CONSTITUTIONAL General Appearance: appears well, alert, no apparent distress - EYES Eyes: PERRL/EOMI - HEAD, EARS, NOSE, MOUTH & THROAT HENMT: normocephalic/atraumatic, moist mucous membranes, normal ENT inspection - NECK Neck: non-tender, full range of motion, supple, normal inspection - RESPIRATORY Respiratory: chest non-tender, lungs clear, normal breath sounds, no respiratory distress, no accessory muscle use - CARDIOVASCULAR Cardiovascular: normal peripheral pulses, no edema, tachycardia - GASTROINTESTINAL (ABDOMEN) Abdominal Exam: normal bowel sounds, non tender, soft - LYMPHATIC Lymphatic: no adenopathy - MUSCULOSKELETAL Back Exam: normal inspection, no CVA tenderness, no vertebral tenderness Extremity: normal range of motion, non-tender, normal gait, normal inspection - SKIN Integumentary: normal color, normal turgor, warm/dry - NEUROLOGIC Neurologic: grossly normal, no motor/sensory deficits - PSYCHIATRIC Psych/Mental Status: normal mood/affect, normal thought content, normal thought process, oriented x 3 - HEART Score HEART Score: History: Slightly Suspicious HEART Score: ECG: Non-Specific Repolarization Disturbance/LBBB/PM HEART Score: Age: > or = 65 Years HEART Score: Risk Factors for Atherosclerotic Disease: 1 or 2 Risk Factors HEART Score: Troponin: < or = Normal Limit Total HEART Score:: 4 Progress - PLAN OF CARE/RESULTS Progress/Plan/Lab Results: Vital Signs - 8 hr 10/17/19 19:40 10/17/19 21:24 10/17/19 21:40 Temperature 98.0 F Pulse Rate 115 H 115 H 124 H Respiratory Rate 19 20 25 H Blood Pressure 151/98 144/82 O2 Sat by Pulse Oximetry 97 89 L 10/17/19 23:36 10/17/19 23:45 Temperature Pulse Rate Respiratory Rate Blood Pressure O2 Sat by Pulse Oximetry 85 L 95 10/17/19 20:42 Influenza Screen - Final Nasopharyngeal Laboratory Results - last 24 hr 10/17/19 10/17/19 10/17/19 20:36 20:36 20:36 WBC 15.26 H RBC 5.02 Hgb 15.3 Hct 47.5 H MCV 94.6 MCH 30.5 MCHC 32.2 L RDW Std Deviation 13.7 Plt Count 278 MPV 9.7 Immature Gran % (Auto) 0.5 Neut % (Auto) 89.3 H Lymph % (Auto) 4.4 L [place] % (Auto) 5.6 Eos % (Auto) 0.1 Baso % (Auto) 0.1 Immature Gran # (Auto) 0.08 H Neut # (Auto) 13.63 H Lymph # (Auto) 0.67 L [place] # (Auto) 0.86 H Eos # (Auto) 0.01 Baso # (Auto) 0.01 PT INR PTT (Actin FS) Specimen Type Sample Site pH pCO2 pO2 HCO3 Base Excess Oxyhemoglobin ABG O2 Sat (Calculated) ABG O2 Saturation ABG Carboxyhemoglobin ABG Methemoglobin Manolo Test A-a O2 Difference Total Hemoglobin Lactate Blood Gas Modality FiO2 % Sodium 139 Potassium 4.3 Chloride 100 Carbon Dioxide 24 L Anion Gap 15 BUN 10 Creatinine 0.6 Estimated GFR/1.73 m2 > 60 BUN/Creatinine Ratio 17 Glucose 117 H Calculated Osmolality 278 Calcium 9.4 Total Bilirubin 0.49 AST 25 ALT 17 Alkaline Phosphatase 88 Creatine Kinase Troponin T High Sens Ecr-I-Fpkplfnydup Pept 68 Total Protein 7.1 Albumin 4.2 Globulin 2.9 Albumin/Globulin Ratio 1.4 Plasma Lactate Urine Source Urine Color Urine Turbidity Urine pH Ur Specific Tarrs Urine Protein Ur Glucose (Stick) Ur Ketones (Stick) Urine Blood Urine Nitrite Urine Bilirubin Urobilinogen Dipstick Urine Leukocytes Urine WBC (Auto) Urine RBC (Auto) U Epithel Cells (Auto) Urine Bacteria (Auto) 10/17/19 10/17/19 10/17/19 20:36 21:33 21:33 WBC RBC Hgb Hct MCV MCH MCHC RDW Std Deviation Plt Count MPV Immature Gran % (Auto) Neut % (Auto) Lymph % (Auto) [place] % (Auto) Eos % (Auto) Baso % (Auto) Immature Gran # (Auto) Neut # (Auto) Lymph # (Auto) [place] # (Auto) Eos # (Auto) Baso # (Auto) PT INR PTT (Actin FS) Specimen Type Sample Site pH pCO2 pO2 HCO3 Base Excess Oxyhemoglobin ABG O2 Sat (Calculated) ABG O2 Saturation ABG Carboxyhemoglobin ABG Methemoglobin Manolo Test A-a O2 Difference Total Hemoglobin Lactate Blood Gas Modality FiO2 % Sodium Potassium Chloride Carbon Dioxide Anion Gap BUN Creatinine Estimated GFR/1.73 m2 BUN/Creatinine Ratio Glucose Calculated Osmolality Calcium Total Bilirubin AST ALT Alkaline Phosphatase Creatine Kinase 113 Troponin T High Sens 18 Jrk-N-Hkvoloxbbbt Pept Total Protein Albumin Globulin Albumin/Globulin Ratio Plasma Lactate 1.2 Urine Source Urine Color Urine Turbidity Urine pH Ur Specific [place] Urine Protein Ur Glucose (Stick) Ur Ketones (Stick) Urine Blood Urine Nitrite Urine Bilirubin Urobilinogen Dipstick Urine Leukocytes Urine WBC (Auto) Urine RBC (Auto) U Epithel Cells (Auto) Urine Bacteria (Auto) 10/17/19 10/17/19 10/17/19 21:33 23:44 23:59 WBC RBC Hgb Hct MCV MCH MCHC RDW Std Deviation Plt Count MPV Immature Gran % (Auto) Neut % (Auto) Lymph % (Auto) [place] % (Auto) Eos % (Auto) Baso % (Auto) Immature Gran # (Auto) Neut # (Auto) Lymph # (Auto) [place] # (Auto) Eos # (Auto) Baso # (Auto) PT 13.4 INR 1.01 PTT (Actin FS) 31.5 Specimen Type ARTERIAL Sample Site R RADIAL pH 7.43 pCO2 37 pO2 46 L* HCO3 25.0 Base Excess 0.5 Oxyhemoglobin 87.2 L* ABG O2 Sat (Calculated) 16.7 ABG O2 Saturation 90.4 L ABG Carboxyhemoglobin 2.50 ABG Methemoglobin 1.1 Manolo Test YES A-a O2 Difference 57.0 Total Hemoglobin 13.7 Lactate 0.70 Blood Gas Modality ROOM AIR FiO2 % 21.0 Sodium Potassium Chloride Carbon Dioxide Anion Gap BUN Creatinine Estimated GFR/1.73 m2 BUN/Creatinine Ratio Glucose Calculated Osmolality Calcium Total Bilirubin AST ALT Alkaline Phosphatase Creatine Kinase Troponin T High Sens Wmy-U-Kpsisuaspzi Pept Total Protein Albumin Globulin Albumin/Globulin Ratio Plasma Lactate Urine Source CLEAN CATCH Urine Color STRAW Urine Turbidity CLEAR Urine pH 7.0 Ur Specific [place] 1.006 Urine Protein NEGATIVE Ur Glucose (Stick) NEGATIVE Ur Ketones (Stick) 20 A Urine Blood NEGATIVE Urine Nitrite NEGATIVE Urine Bilirubin NEGATIVE Urobilinogen Dipstick NORMAL Urine Leukocytes NEGATIVE Urine WBC (Auto) <10 Urine RBC (Auto) <10 U Epithel Cells (Auto) <10 Urine Bacteria (Auto) NEGATIVE Orders Category Date Time Status Cardiac Monitoring DIRECTED Care 10/17/19 22:05 Active Notify of + Sepsis Screen NOW Care 10/17/19 22:05 Active cxr [CHEST-1 VIEW] [RAD] Stat Exams 10/17/19 20:08 Completed ABG [RESP] Routine Lab 10/17/19 23:44 Completed BLOOD CULTURE [BLDCUL] Stat Lab 10/17/19 21:40 Results CBC WITH ELECTRONIC DIFF [HEME] Stat Lab 10/17/19 20:36 Completed CK PROFILE [SP CHEM] Stat Lab 10/17/19 21:33 Completed COMPREHENSIVE METABOLIC PANEL [CHEM] Stat Lab 10/17/19 20:36 Completed INFLUENZA SCREEN A/B Stat Lab 10/17/19 20:42 Completed LACTATE, PLASMA [CHEM] Lab 10/17/19 22:15 Ordered LACTATE, PLASMA [CHEM] Lab 10/18/19 01:15 Uncollected LACTATE, PLASMA [CHEM] Stat Lab 10/17/19 21:33 Completed PRO B-NATRIURETIC PEPTIDE Stat Lab 10/17/19 20:36 Completed PROTIME WITH INR [COAG] Stat Lab 10/17/19 21:33 Completed PTT [COAG] Stat Lab 10/17/19 21:33 Completed TROPONIN T HIGH SENSITIVITY Stat Lab 10/17/19 20:36 Completed TROPONIN T HIGH SENSITIVITY Stat Lab 10/17/19 22:49 Ordered URINALYSIS W/POSS RFLX CULT [URINALYSIS] Stat Lab 10/17/19 23:59 Completed 0.9% Sodium Chloride Inj [Ns] 1,000 ml Med 10/17/19 21:40 Discontinued IV 999 mls/hr Acetaminophen [Tylenol] Med 10/17/19 21:20 Discontinued 1,000 mg PO NOW ONE Azithromycin 500 mg/Ns [Zithromax 500 mg/Ns] Med 10/18/19 00:00 Active 500 mg in 250 ml IV NOW Levalbuterol Neb [Xopenex Neb] Med 10/17/19 21:17 Discontinued 1.25 mg INH NOW ONE Methylprednisolone Sod Succ [Solu-Medrol] Med 10/18/19 00:01 Discontinued 125 mg IV NOW ONE Sodium Chloride 0.9% Neb [Ns Neb] Med 10/17/19 21:30 Discontinued 5 ml INH DIRECTED Sodium Chloride 0.9% Neb [Ns Neb] Med 10/17/19 21:30 Discontinued 5 ml INH DIRECTED ONE Aerosol Treatments Routine Oth 10/17/19 21:17 Completed Aerosol Treatments Stat Oth 10/17/19 21:17 Completed Oxygen Device Stat Oth 10/17/19 22:05 Completed EKG [EKG] Stat Ther 10/17/19 20:01 Draft EKG [EKG] Stat Ther 10/17/19 20:08 Ordered Pt was observed to have RA sats in the mid 80's several times before oxygen applied. Result Diagrams: 10/17/19 20:36 10/17/19 20:36 - XRAY 1 XRAY Study: Chest Impression: Abnormal ( Signed EXAM: CHEST-1 VIEW HISTORY: cp, sob TECHNIQUE: Single view COMPARISON: 08/15/2019 FINDINGS: The lungs are hyperexpanded. The heart is not enlarged. The vessels are small. There are increased interstitial markings in the lower left lung. No effusion identified. IMPRESSION: Left lingular pneumonia. Emphysema. Electronically signed by Moisés López 10/17/2019 8:34 PM 10/17/192033 Interpreting Physician: Moisés López MD Dictated Date/Time: 10/17/192033 cc: Franck Espinoza MD; Gregg Sauceda MD) - CONSULTS/PCP/HOSPITALIST Notification #1 *Consult/PCP/Hospitalist*: Dr Trejo Time Discussed: 23:58 Consult Disposition: Will see in ED, Admit Departure - Departure Date of Disposition Decision: 10/17/19 Time of Disposition Decision: 23:58 DIAGNOSIS: Pneumonia, COPD exacerbation, Hypoxia Disposition: ADMITTED INPATIENT 09 Certified Medical Emergency: Emergent Condition: Fair Referrals and Follow-Ups: Gregg Sauceda MD [Primary Care Provider] - - Critical Care Note This patient required my direct & personal management of CC.: No Attestation - Physician/ TRUNG Attestation Patient care was provided by Advanced Practice Provider:: No The physician spent face to face time with patient:: Yes Advanced Practice Provider documentation review:: Supervising physician onsite and consulted in the evaluation and care of this patient. The physician did have a face to face encounter with the patient. This chart was documented by the indicated scribe, (Kriss Rodriguez Scribe) and accurately reflects the services I performed and decisions made by me, Franck Espinoza MD, as attested by the provider's signature.
[2019-10-18 00:21] LABS: BILIRUBIN URINE NEGATIVE (NEGATIVE); BLOOD URINE NEGATIVE (NEGATIVE); COLOR STRAW; GLUCOSE URINE NEGATIVE (NEGATIVE); KETONE URINE 20 mg/dL (NEGATIVE); LEUKOCYTES URINE NEGATIVE (NEGATIVE); NITRITE URINE NEGATIVE (NEGATIVE); PROTEIN URINE NEGATIVE (NEGATIVE); SP GRAVITY URINE 1.006; TURBIDITY URINE CLEAR (CLEAR); UR EPITHELIAL CELLS <10 /HPF (<10); URINE BACTERIA NEGATIVE /HPF; URINE RBC <10 /HPF (<10); URINE WBC <10 /HPF (<10); UROBILINOGEN URINE NORMAL (NORMAL)
[2019-10-18] MEDS ORDERED: DUONEB (A & A) INH PRN (00:56)
[2019-10-18] MEDS ORDERED: LEVAQUIN 500 MG/D5W 500 MG/100 ML IVPB IV SCH ×2 (01:15→02:00)
[2019-10-18] MEDS ORDERED: BENTYL PO PRN (02:16)
[2019-10-18] MEDS ORDERED: ALLEGRA PO PRN (02:16)
[2019-10-18] MEDS ORDERED: DUONEB (A & A) INH SCH (03:30)
[2019-10-18] MEDS ORDERED: NS NEB INH SCH (05:15)
--- NOTE | 2019-10-18 05:30 | HISTORY AND PHYSICAL ---
CHIEF COMPLAINT: Shortness of breath noticed prior to admission. HISTORY OF PRESENT ILLNESS: Ms Dana Garcia is a 74-year-old female who has a history of COPD. She presented to the hospital because of shortness of breath which has been progressively getting worse. She also describes having nonproductive cough along with chest pain. No wheezing. The patient was seen and evaluated in the ER. X-ray of the chest showed evidence of a left lingula pneumonia with evidence of hyperexpanded lungs. The patient will now be admitted to the floor for further management. PAST MEDICAL HISTORY: COPD, irritable bowel syndrome. SOCIAL HISTORY: No history of cigarette smoking, no alcohol or drug use. ALLERGIES: She is allergic to acetaminophen, brompheniramine, diphenhydramine, hydrocodone, Polistirex, ibuprofen, levofloxacin, penicillin, pseudoephedrine, sulfa, trazodone. FAMILY HISTORY: Possible migraine. PAST SURGICAL HISTORY: She has had jaw surgery as well as tonsillectomy, and also adenoidectomy. REVIEW OF SYSTEMS: Constitutional: Has fever. CONTACT MANAGER: No headaches. Eyes: Uses glasses. ENT: She has sinus problem. Cardiovascular: Has chest pain. Respiratory: As in history of present illness. Gastrointestinal: No nausea, vomiting, diarrhea. Has abdominal pain. Genitourinary: No dysuria. Psychiatric: She has anxiety. Endocrinology: No thyroid disease or diabetes. Hematology: No bleeding problems. Dermatology: No skin lesions. Musculoskeletal: No joint pains. PHYSICAL EXAMINATION: VITAL SIGNS ARE FOLLOWS: Temperature 98.1 degrees, pulse 101, respiratory rate 17, blood pressure 107/62. HEENT: She is atraumatic, normocephalic. She is anicteric. No oral lesions. NECK: No lymphadenopathy or thyromegaly. CARDIOVASCULAR: S1, S2. RESPIRATORY: Has evidence of good air entry bilaterally with occasional rhonchi. ABDOMEN: Soft, nontender. No masses felt. EXTREMITIES: No evidence of edema. CENTRAL NERVOUS SYSTEM: No obvious focal deficit noted. LABORATORY DATA: WBC is 15.26, hematocrit 47.5 with a platelet count of 278,000. INR is 1.01. ABG 7.43/43/37/46/98.4. Chemistry: Sodium is 139, potassium 4.2, chloride is 100, bicarb 24, BUN is 10, creatinine 0.6. Glucose 117. X-ray chest shows left lingular pneumonia. EKG shows evidence of sinus tachycardia with possible inferior infarction, age undetermined. ASSESSMENT AND PLAN: 1. Chronic obstructive pulmonary disease exacerbation. Maintain patient on nebulized bronchodilators, steroids, as well as antibiotics. 2. Acute hypoxemic respiratory failure. Maintain patient on oxygen supplementation. Treat primary pulmonary conditions. 3. Left lingular pneumonia. Obtain sputum and blood cultures. Maintain patient on antibiotics. 4. Leukocytosis secondary likely to pneumonia. 5. Deep vein thrombosis prophylaxis. Lovenox. 6. Gastrointestinal prophylaxis. Proton pump inhibitor. cc: MD Gregg Boone MD
--- NOTE | 2019-10-18 05:50 | EKG Report ---
Test Performed on : 10/18/2019 05:43:46 AM Test Reason : cp, sob Blood Pressure : / mmHG Vent. Rate : 098 BPM Atrial Rate : 098 BPM P-R Int : 158 ms QRS Dur : 084 ms QT Int : 382 ms P-R-T Axes : 080 021 057 degrees QTc Int : 487 ms Normal sinus rhythm. Normal ECG Confirmed by Tiffany Ferguson MD ([id number]) on 10/18/2019 12:15:55 PM
[2019-10-18] MEDS: PRILOSEC PO SCH (06:31)
[2019-10-18] MEDS ORDERED: ATROVENT NEB INH SCH (07:30)
[2019-10-18] MEDS ORDERED: SOLU-MEDROL IV SCH (08:00)
[2019-10-18] MEDS ORDERED: MUCINEX PO PRN (08:32)
[2019-10-18] MEDS ORDERED: CENTRUM CHEWABLE PO SCH (09:00)
[2019-10-18] MEDS: SINGULAIR PO SCH (09:07)
[2019-10-18] MEDS: FLINTSTONES COMPLETE PO SCH (09:08)
[2019-10-18] MEDS: KLONOPIN PO SCH ×2 (09:08→21:10)
[2019-10-18] MEDS: ZITHROMAX PO SCH (09:09)
[2019-10-18] MEDS ORDERED: XOPENEX NEB INH SCH (10:00)
[2019-10-18] MEDS: ATROVENT NEB INH SCH ×3 (10:19→22:32)
[2019-10-18] MEDS: SOLU-MEDROL IV SCH (17:00)
[2019-10-18] MEDS ORDERED: ESTRACE VAGINAL CREAM VAG SCH (21:00)
[2019-10-19] MEDS: SOLU-MEDROL IV SCH (04:56)
[2019-10-19 05:23] LABS: HEMATOCRIT 39.5 % (37.0-47.0); HEMOGLOBIN 12.3 g/dL (12.0-16.0); LYMPH% 4.3 % (20.5-51.1); MCH 30.4 PG (27-31); MCHC 31.1 g/dL (33-37); MCV 97.8 FL (81-99); MPV 9.9 FL (7.4-10.4); NEUT% 93.3 % (42.2-75.2); PLT 254 X1000 (130-400); RBC 4.04 XMIL (4.2-5.4); RDW 13.7 % (11.5-14.5); WBC 16.13 X1000 (4.8-10.8)
[2019-10-19 05:24] LABS: IMM GRAN# 0.03 X1000 (0.0-0.04); IMM GRAN% 0.2 % (0.0-0.5); LYMPH# 0.69 X1000 (1.2-3.4); MONO# 0.35 X1000 (0.11-0.59); MONO% 2.2 % (1.7-9.3); NEUT# 15.06 X1000 (1.4-6.5)
[2019-10-19] MEDS: PRILOSEC PO SCH (06:08)
[2019-10-19] MEDS ORDERED: TYLENOL PO PRN (09:08)
[2019-10-19] MEDS: FLINTSTONES COMPLETE PO SCH (10:43)
[2019-10-19] MEDS: SINGULAIR PO SCH (10:43)
[2019-10-19] MEDS: KLONOPIN PO SCH ×2 (10:43→20:53)
[2019-10-19] MEDS: LOVENOX SUBQ SCH (10:44)
[2019-10-19] MEDS: ZITHROMAX PO SCH (10:44)
[2019-10-19] MEDS: ATROVENT NEB INH SCH (19:53)
[2019-10-20] MEDS: PRILOSEC PO SCH (06:27)
[2019-10-20] MEDS: ATROVENT NEB INH SCH (07:46)
[2019-10-20 08:27] VITALS: BP 118/70
[2019-10-20] MEDS ORDERED: PREDNISONE PO SCH (09:00)
[2019-10-20] MEDS: KLONOPIN PO SCH (09:03)
[2019-10-20] MEDS: SINGULAIR PO SCH (09:03)
[2019-10-20] MEDS: ZITHROMAX PO SCH (09:04)
[2019-10-20] MEDS: LOVENOX SUBQ SCH (09:04)
[2019-10-20] MEDS: FLINTSTONES COMPLETE PO SCH (09:04)
--- NOTE | 2019-10-20 09:28 | DISCHARGE SUMMARY ---
ADMISSION DATE: 10/18/2019 DISCHARGE DATE: 10/20/2019 ADMITTING DIAGNOSES: 1. Left lingular pneumonia. 2. Exacerbation of chronic obstructive pulmonary disease. 3. Acute hypoxemia. HISTORY OF PRESENT ILLNESS: Ms. Garcia is a 74-year-old woman with a history of COPD. She presented to the emergency room with a 4 to 6 hour history of dyspnea and a 2-day history of cough and chest congestion. Chest x-ray showed a left lingular pneumonia and hyperexpanded lungs. She also has past medical history remarkable for COPD, irritable bowel syndrome and chronic anxiety. SOCIAL HISTORY: She is and lives with her . She has a 30-pack year history of smoking but quit greater than 10 years ago. PHYSICAL EXAMINATION: VITAL SIGNS: She was afebrile, pulses 101, respiratory rate 17, blood pressure 107/62. CARDIOVASCULAR: Regular rate and rhythm. No murmurs. RESPIRATORY: Adequate air movement with scattered rhonchi but no crackles. DATABASE: White blood count 15,260. ABG on room air showed 7.43, 43, pO2 was 46 on room air. Please see dictated history and physical for further details. HOSPITAL COURSE: She was treated with intravenous Zithromax and IV Solu Medrol. She was also given a dose of levofloxacin on admission. She was begun on low flow nasal oxygen for her hypoxemia. With this regimen, she improved rather quickly and was changed to oral prednisone and maintained her improvement. The night before discharge, she had an anxiety attack associated with some hypoxemic and was briefly treated again with low flow nasal oxygen. This morning, her room air O2 saturation is 91%, and I feel she will likely not need oxygen at home, although she has an oximeter and can check her saturation and call me if she is below 80% to 89% and would qualify for temporary home oxygen. She is discharged in improved condition, and she will return to my office in 8 to 14 days for transition of care visit. She completed 6 days of Zithromax in the hospital. DISCHARGE MEDICATIONS: Prednisone 20 mg q.a.m. for 5 days, multivitamin daily, albuterol (Ventolin) HFA 2 puffs q.i.d. as needed, Advair 250/50 one inhalation twice a day, Montelukast 10 mg q.a.m., clonazepam 0.5 mg b.i.d. for anxiety, omeprazole 20 mg daily, ipratropium nebulizer treatments b.i.d., artificial tears as needed, guaifenesin ER 600 mg q.12 hours p.r.n. for cough and congestion. cc: Gregg Sauceda MD
== END 2019-10-20 11:53 | disposition home or self-care (01) | DRG 190 ==
LOC: ED 19:39 → 1N 10-18 01:52 → SUATTDRO 10-18 01:52
PROVIDERS: ADMIT Internal Medicine; ATTEND Internal Medicine